=== PATIENT | female | born 1960 | race Caucasian/White ===

== ENCOUNTER 2021-09-08 09:08 | Emergency (ER) | payer OTHER ==
[~2021-09-08] VITALS: Ht 160 cm; Wt 70.3 kg
[~2021-09-08 09:08] MED LIST: BENA10TA25 PO
[2021-09-08 09:10] VITALS: BP 180/76
--- NOTE | 2021-09-08 09:17 | NUR ---
PT BIB [facility] C/O HEADACHE SINCE YESTERDAY WITH N/V. PT VERY ANXIOUS. PLACED IN BED 7 PENDING ER MD MENDEZ.
[2021-09-08] MEDS ORDERED: KETOROLAC 30 MG/ML VIAL ONE (09:40)
[2021-09-08] MEDS ORDERED: KETOROLAC 60 MG/2 ML VIAL IM ONE (09:40)
[2021-09-08] MEDS ORDERED: IBUP-2213 PO (10:03)
--- NOTE | 2021-09-08 10:11 | NUR ---
Patient discharged with v/s stable. Written and verbal after care instructions given and explained. Patient alert, oriented and verbalized understanding of instructions. Ambulatory with . All questions addressed prior to discharge. ID band removed. Patient advised to follow up with PMD. Rx of motrin given. Patient educated on indication of medication including possible reaction and side effects. Opportunity to ask questions provided and answered.
[2021-09-08 10:12] VITALS: BP 147/80
== END 2021-09-08 10:11 | disposition home or self-care (01) ==
LOC: MED 09:08
DX: R51.9 Headache, unspecified (principal); I10 Essential (primary) hypertension; Z79.899 Other long term (current) drug therapy; Z98.890 Other specified postprocedural states
CPT/HCPCS: 96372; 99283; J1885